=== PATIENT | female | born 1995 | race Caucasian/White ===

== ENCOUNTER 2023-05-20 11:19 | Emergency (ER) | payer MEDICAID ==
[~2023-05-20] VITALS: Ht 160 cm; Wt 61.0 kg
[2023-05-20 11:22] VITALS: O2SAT 99
[2023-05-20] MEDS ORDERED: KETOROLAC 30MG/ML VIAL IM ONE (11:45)
[2023-05-20 12:15] LABS: CLARITY URINE CLOUDY (CLEAR); COLOR URINE YELLOW (YELLOW); GLUCOSE URINE 3+ (NEGATIVE); KETONES URINE 3+ (NEGATIVE); LEUKOCYTE ESTERASE URINE TRACE (NEGATIVE); NITRITE URINE NEGATIVE (NEGATIVE); OCCULT BLOOD URINE TRACE (NEGATIVE); PH URINE 6.5 (4.5-8.0); PROTEIN URINE 1+ (NEGATIVE); SPECIFIC GRAVITY URINE 1.047 (1.005-1.030); UROBILINOGEN URINE 0.2 E.U./dL (0.2-1.0)
[2023-05-20] MEDS ORDERED: LIDOCAINE HCL/PF 1% 10 MG/ML 5ML VIAL INFIL ONE (12:30)
[2023-05-20] MEDS ORDERED: CEFTRIAXONE SODIUM 1 G/VIAL IM ONE (12:30)
[2023-05-20] MEDS ORDERED: DOXY100T2 MT (12:31)
[2023-05-20] MEDS ORDERED: VAGICR TOP (12:31)
[2023-05-20 12:44] LABS: SQUAMOUS EPITHELIAL CELL URINE 2+ /lpf (RARE/1+); WBC URINE TNTC /hpf (0-2)
[2023-05-20 12:45] LABS: BACTERIA URINE 3+; RBC URINE 0-2 /hpf (0-2)
[2023-05-20 13:17] VITALS: BP 145/87; PULSE 103; RESP 19; TEMP 98.4
[2023-05-23 08:08] LABS: CHLAMYDIA TRACHOMATIS NAA Positive (Negative); NEISSERIA GONORRHOEAE NAA Negative (Negative)
== END 2023-05-20 13:31 | disposition home or self-care (01) ==
LOC: ER 12:18
DX: N89.8 Other specified noninflammatory disorders of vagina (principal); Z11.3 Encounter for screening for infections with a predominantly sexual mode of transmission
CPT/HCPCS: 87491; 87591; 81003; 81025; 87086; 87186; 87077; 96372; 99284; J0696; J1885; J3490; Z7610